=== PATIENT | female | born 1945 | race Caucasian/White ===

== ENCOUNTER 2018-10-16 10:47 | Inpatient (IN) | payer MEDICARE, OTHER ==
[~2018-10-16] VITALS: Ht 162.6 cm; Wt 89.0 kg
[2018-10-16] MEDS: albuterol 2.5 MG/3 ML nebule NEB SCH ×3 (00:30→22:07)
[~2018-10-16 10:47] MED LIST: ASPI81TA52 PO; ATOR20TA PO; LANTUS SQ; METF500T PO; OMEP-84 PO; SITA100T15 PO
[2018-10-16] MEDS ORDERED: levoFLOXACIN-Levaquin 750MG/D5 150 ML IV ONE (11:35)
[2018-10-16] MEDS ORDERED: normal saline 1000ML IV soln IV ONE (11:35)
[2018-10-16 11:36] LABS: BASOPHILS # (AUTO) 0.1 X10'3 (0-0.2); BASOPHILS % (AUTO) 0.3 % (0-1); EOSINOPHILS # (AUTO) 0.2 X10'3 (0-0.9); EOSINOPHILS % (AUTO) 1.2 % (0-6); HEMOGLOBIN 12.1 g/dl (12.0-16.0); LYMPHOCYTES # (AUTO) 1.2 X10'3 (1.1-4.8); LYMPHOCYTES % (AUTO) 7.8 % (21-51); MEAN CORPUSCULAR HEMOGLOBIN 24.8 PG (27.0-31.0); MEAN CORPUSCULAR VOLUME 79.9 FL (78-98); MEAN PLATELET VOLUME 9.6 FL (7.4-10.4); MONOCYTES # (AUTO) 1.6 X10'3 (0-0.9); MONOCYTES % (AUTO) 10.3 % (2-12); NEUTROPHILS # (AUTO) 12.1 X10'3 (1.8-7.7); NEUTROPHILS % (AUTO) 80.4 % (42-75); PLATELET COUNT 231 X10'3 (140-440); RED BLOOD COUNT 4.88 X10'6 (4.20-5.60); RED CELL DISTRIBUTION WIDTH 15.3 % (11.5-14.5); WHITE BLOOD COUNT 15.1 X10'3 (4.5-11.0)
[2018-10-16 11:47] LABS: ALANINE AMINOTRANSFERASE 16 U/L (12-78); ALBUMIN/GLOBULIN RATIO 0.6 (1.1-1.5); ALKALINE PHOSPHATASE 99 IU/L (46-116); ANION GAP 15 (8-16); ASPARTATE AMINO TRANSFERASE 15 U/L (10-37); BILIRUBIN,TOTAL 1.2 MG/DL (0.1-1.0); BLOOD UREA NITROGEN 17 MG/DL (7-18); BUN/CREATININE RATIO 18.5 (6.6-38.0); CALCIUM 9.4 MG/DL (8.5-10.1); CHLORIDE 97 MMOL/L (99-107); CREATININE 0.92 MG/DL (0.40-0.90); GLUCOSE 109 MG/DL (70-104); POTASSIUM 3.6 MMOL/L (3.5-5.1); SODIUM 136 MMOL/L (135-145); TOTAL CARBON DIOXIDE 24.3 MMOL/L (24-32); TOTAL PROTEIN 7.7 G/DL (6.4-8.2); eGFR 60 ML/MIN
[2018-10-16] MEDS ORDERED: magnesium hydroxide 30ml (MOM) UD suspension PO PRN (12:35)
[2018-10-16] MEDS ORDERED: magnesium 1gm/100ml D5W IVPB 100 ML IV PRN (12:35)
[2018-10-16] MEDS ORDERED: potassium Cl 20 mEq SR tablet PO PRN (12:35)
[2018-10-16] MEDS ORDERED: magnesium 4gm in 100ml NS 100 ML IV PRN (12:35)
[2018-10-16] MEDS ORDERED: potassium Cl 40MEQ/NS 500ml 500 ML IV PRN ×2 (12:35)
[2018-10-16] MEDS ORDERED: ondansetron/PF 4mg/2ml inj IV PRN (12:35)
[2018-10-16] MEDS ORDERED: mag hydrox/Alum hydrox/simeth 30ml oral suspension PO PRN (12:35)
[2018-10-16] MEDS ORDERED: magnesium Cl slow-release 64mg tablet PO PRN (12:35)
[2018-10-16] MEDS ORDERED: acetaminophen 325mg tablet PO PRN (12:35)
[2018-10-16] MEDS ORDERED: DAPA10TA PO (12:48)
[2018-10-16] MEDS: CefTRIAXone/D5W-Rocephin 1gm 50 ML IV SCH (13:53)
[2018-10-16] MEDS: oxybutynin 5mg tablet PO SCH ×2 (13:53→21:09)
[2018-10-16] MEDS: normal saline 1000ml 1,000 ML IV SCH ×2 (15:23→19:54)
[2018-10-16 19:20] VITALS: BP 138/67
[2018-10-16] MEDS: atorvastatin 20mg tablet PO SCH (21:09)
[2018-10-17] VITALS: BP 135/67
[2018-10-17 05:47] LABS: HEMOGLOBIN A1C 7.3 % (4.5-6.2)
[2018-10-17] MEDS: normal saline 1000ml 1,000 ML IV SCH ×2 (05:52→18:05)
[2018-10-17 06:14] LABS: ALANINE AMINOTRANSFERASE 19 U/L (12-78); ALBUMIN 2.6 G/DL (3.4-5.0); ALBUMIN/GLOBULIN RATIO 0.6 (1.1-1.5); ALKALINE PHOSPHATASE 98 IU/L (46-116); ANION GAP 11 (8-16); ASPARTATE AMINO TRANSFERASE 22 U/L (10-37); BILIRUBIN,TOTAL 0.8 MG/DL (0.1-1.0); BLOOD UREA NITROGEN 14 MG/DL (7-18); BUN/CREATININE RATIO 17.1 (6.6-38.0); CALCIUM 8.6 MG/DL (8.5-10.1); CHLORIDE 103 MMOL/L (99-107); CREATININE 0.82 MG/DL (0.40-0.90); GLUCOSE 124 MG/DL (70-104); MAGNESIUM 1.6 MG/DL (1.5-2.4); POTASSIUM 3.6 MMOL/L (3.5-5.1); SODIUM 140 MMOL/L (135-145); TOTAL CARBON DIOXIDE 25.6 MMOL/L (24-32); eGFR 69 ML/MIN
[2018-10-17 06:43] LABS: BASOPHILS % (AUTO) 0.1 % (0-1); EOSINOPHILS # (AUTO) 0.1 X10'3 (0-0.9); EOSINOPHILS % (AUTO) 0.9 % (0-6); HEMATOCRIT 37.6 % (35.0-45.0); HEMOGLOBIN 11.8 g/dl (12.0-16.0); LYMPHOCYTES # (AUTO) 1.6 X10'3 (1.1-4.8); LYMPHOCYTES % (AUTO) 9.9 % (21-51); MEAN CORPUSCULAR HEMOGLOBIN 25.3 PG (27.0-31.0); MEAN CORPUSCULAR HGB CONC 31.5 % (33.0-36.5); MEAN CORPUSCULAR VOLUME 80.3 FL (78-98); MEAN PLATELET VOLUME 10.2 FL (7.4-10.4); MONOCYTES # (AUTO) 2.2 X10'3 (0-0.9); MONOCYTES % (AUTO) 13.6 % (2-12); NEUTROPHILS # (AUTO) 12.2 X10'3 (1.8-7.7); NEUTROPHILS % (AUTO) 75.5 % (42-75); PLATELET COUNT 250 X10'3 (140-440); RED BLOOD COUNT 4.68 X10'6 (4.20-5.60); RED CELL DISTRIBUTION WIDTH 15.9 % (11.5-14.5); WHITE BLOOD COUNT 16.2 X10'3 (4.5-11.0)
[2018-10-17 06:50] LABS: ANISOCYTOSIS 1+; LARGE PLATELETS FEW; MICROCYTOSIS 1+; PLATELET ESTIMATE NORMAL; TOTAL CELLS COUNTED 100
[2018-10-17 07:44] VITALS: BP 108/53
[2018-10-17] MEDS: oxybutynin 5mg tablet PO SCH ×3 (07:45→20:41)
[2018-10-17] MEDS: aspirin 81mg tablet.DR PO SCH (07:45)
[2018-10-17] MEDS: pantoprazole 40mg Tablet.DR PO SCH (07:47)
[2018-10-17] MEDS: enoxaparin 40mg/0.4ml syringe SUBCUT SCH (07:48)
[2018-10-17] MEDS: CefTRIAXone/D5W-Rocephin 1gm 50 ML IV SCH (07:50)
[2018-10-17] MEDS: K and/or MAG REPLACEMENT MC SCH (08:00)
[2018-10-17] MEDS ORDERED: non-formulary drug (Omeprazole* (Prilosec*) 1 CAP) PO SCH (08:00)
[2018-10-17] MEDS: albuterol 2.5 MG/3 ML nebule NEB SCH ×5 (08:00→23:00)
[2018-10-17] MEDS ORDERED: dextrose ORAL solution 15 GM/59 ML bottle PO PRN ×2 (09:05)
[2018-10-17] MEDS ORDERED: MESSAGE TO PHARMACY PO ONE (09:05)
[2018-10-17] MEDS ORDERED: dextrose 50%-water 50ml dispensing syringe IV PRN ×2 (09:05)
[2018-10-17] MEDS ORDERED: glucagon, human recombinant 1mg kit SUBCUT PRN (09:05)
[2018-10-17] MEDS: levoFLOXACIN-Levaquin 250mg/D5 50 ML IV SCH (09:28)
[2018-10-17] MEDS: Protein Smoothie (high protein) 240ml (8oz) cup PO SCH ×2 (13:00→18:00)
[2018-10-17] MEDS ORDERED: LIDOcaine/PRILOcaine 5gm cream TP PRN (14:15)
[2018-10-17 18:00] VITALS: BP 136/57
[2018-10-17] MEDS: atorvastatin 20mg tablet PO SCH (20:42)
[2018-10-17] MEDS: insulin glargine (Lantus) pen - multi-dose SQ SCH (21:00)
[2018-10-17] MEDS: acetaminophen 325mg tablet PO PRN (21:50)
[2018-10-17] MEDS ORDERED: temazepam 15mg capsule PO PRN (22:00)
[2018-10-18 03:25] VITALS: BP 151/74
[2018-10-18] MEDS: albuterol 2.5 MG/3 ML nebule NEB SCH ×6 (03:28→23:21)
[2018-10-18] MEDS: normal saline 1000ml 1,000 ML IV SCH ×2 (04:35→09:06)
[2018-10-18 04:50] VITALS: BP 135/55
[2018-10-18 07:12] LABS: BASOPHILS # (AUTO) 0.1 X10'3 (0-0.2); BASOPHILS % (AUTO) 0.5 % (0-1); EOSINOPHILS # (AUTO) 0.2 X10'3 (0-0.9); EOSINOPHILS % (AUTO) 1.3 % (0-6); HEMATOCRIT 36.2 % (35.0-45.0); HEMOGLOBIN 11.3 g/dl (12.0-16.0); LYMPHOCYTES # (AUTO) 0.9 X10'3 (1.1-4.8); LYMPHOCYTES % (AUTO) 5.7 % (21-51); MEAN CORPUSCULAR HEMOGLOBIN 25.2 PG (27.0-31.0); MEAN CORPUSCULAR HGB CONC 31.1 % (33.0-36.5); MEAN CORPUSCULAR VOLUME 81.2 FL (78-98); MEAN PLATELET VOLUME 9.9 FL (7.4-10.4); MONOCYTES # (AUTO) 1.5 X10'3 (0-0.9); MONOCYTES % (AUTO) 9.7 % (2-12); NEUTROPHILS # (AUTO) 12.8 X10'3 (1.8-7.7); NEUTROPHILS % (AUTO) 82.8 % (42-75); PLATELET COUNT 256 X10'3 (140-440); RED BLOOD COUNT 4.46 X10'6 (4.20-5.60); RED CELL DISTRIBUTION WIDTH 15.8 % (11.5-14.5); WHITE BLOOD COUNT 15.4 X10'3 (4.5-11.0)
[2018-10-18 07:31] LABS: ALANINE AMINOTRANSFERASE 25 U/L (12-78); ALBUMIN 2.4 G/DL (3.4-5.0); ALBUMIN/GLOBULIN RATIO 0.5 (1.1-1.5); ALKALINE PHOSPHATASE 112 IU/L (46-116); ANION GAP 10 (8-16); ASPARTATE AMINO TRANSFERASE 30 U/L (10-37); BILIRUBIN,TOTAL 0.5 MG/DL (0.1-1.0); BLOOD UREA NITROGEN 9 MG/DL (7-18); BUN/CREATININE RATIO 12.9 (6.6-38.0); CHLORIDE 103 MMOL/L (99-107); GLUCOSE 123 MG/DL (70-104); MAGNESIUM 2.1 MG/DL (1.5-2.4); SODIUM 140 MMOL/L (135-145); TOTAL CARBON DIOXIDE 26.9 MMOL/L (24-32); eGFR 82 ML/MIN
[2018-10-18] MEDS: K and/or MAG REPLACEMENT MC SCH (08:00)
[2018-10-18] MEDS: aspirin 81mg tablet.DR PO SCH (08:44)
[2018-10-18] MEDS: levoFLOXACIN-Levaquin 250mg/D5 50 ML IV SCH (08:44)
[2018-10-18] MEDS: pantoprazole 40mg Tablet.DR PO SCH (08:45)
[2018-10-18] MEDS: oxybutynin 5mg tablet PO SCH ×3 (08:45→20:55)
[2018-10-18] MEDS: Protein Smoothie (high protein) 240ml (8oz) cup PO SCH ×3 (08:45→18:53)
[2018-10-18] MEDS: enoxaparin 40mg/0.4ml syringe SUBCUT SCH (08:45)
[2018-10-18] MEDS: CefTRIAXone/D5W-Rocephin 1gm 50 ML IV SCH (09:53)
[2018-10-18 11:45] VITALS: BP 130/70
[2018-10-18] MEDS: acetaminophen 325mg tablet PO PRN (11:54)
[2018-10-18 13:21] LABS: D-DIMER 5.04 MG/L FEU (0-0.50)
[2018-10-18 14:26] LABS: CLARITY,URINE SLIGHTLY CLOUDY (Clear); COLOR,URINE YELLOW (Yellow); GLUCOSE, URINE >=1000 mg/dl (Neg); KETONES,URINE >=80 mg/dl (Neg); LEUKOCYTE ESTERASE ,URINE NEGATIVE (Neg); NITRITES, URINE POSITIVE (Neg); OCCULT BLOOD,URINE SMALL (Neg); PH,URINE 5.5 (4.8-8.0); PROTEIN,URINE TRACE mg/dl (Neg)
[2018-10-18 14:38] LABS: UA COLLECTION TYPE NON-SPECIFIED
[2018-10-18 14:40] LABS: BACTERIA,URINE 3+ /HPF (Neg); SQUAMOUS EPITHELIAL CELL,UR FEW /LPF (FEW); WBC CLUMPS,URINE FEW /HPF (NEGATIVE); YEAST MODERATE /HPF (NEGATIVE)
[2018-10-18] MEDS: MESSAGE TO NURSING PO SCH (17:00)
[2018-10-18] MEDS ORDERED: iohexol 350MG/ML 100ml bottle IV ONE (17:13)
[2018-10-18] MEDS ORDERED: furosemide 20 MG/2 ML vial IV ONE (18:35)
[2018-10-18 19:00] VITALS: BP 134/72
[2018-10-18] MEDS: atorvastatin 20mg tablet PO SCH (20:55)
[2018-10-18] MEDS ORDERED: Melatonin 3mg tablet PO SCH (21:00)
[2018-10-18] MEDS: insulin glargine (Lantus) pen - multi-dose SQ SCH (21:00)
[2018-10-18] MEDS ORDERED: Melatonin 3mg tablet PO PRN (21:00)
[2018-10-19] VITALS: BP 128/68
[2018-10-19 05:00] LABS: BASOPHILS # (AUTO) 0.1 X10'3 (0-0.2); BASOPHILS % (AUTO) 0.8 % (0-1); EOSINOPHILS # (AUTO) 0.1 X10'3 (0-0.9); HEMATOCRIT 33.2 % (35.0-45.0); HEMOGLOBIN 10.4 g/dl (12.0-16.0); MEAN CORPUSCULAR HEMOGLOBIN 25.1 PG (27.0-31.0); MEAN CORPUSCULAR HGB CONC 31.3 % (33.0-36.5); MEAN PLATELET VOLUME 9.4 FL (7.4-10.4); MONOCYTES # (AUTO) 1.4 X10'3 (0-0.9); NEUTROPHILS # (AUTO) 10.2 X10'3 (1.8-7.7); NEUTROPHILS % (AUTO) 79.2 % (42-75); PLATELET COUNT 236 X10'3 (140-440); RED BLOOD COUNT 4.15 X10'6 (4.20-5.60); RED CELL DISTRIBUTION WIDTH 15.7 % (11.5-14.5); WHITE BLOOD COUNT 12.9 X10'3 (4.5-11.0)
[2018-10-19 05:32] LABS: ALANINE AMINOTRANSFERASE 31 U/L (12-78); ALBUMIN 2.2 G/DL (3.4-5.0); ALBUMIN/GLOBULIN RATIO 0.5 (1.1-1.5); ALKALINE PHOSPHATASE 114 IU/L (46-116); ANION GAP 8 (8-16); ASPARTATE AMINO TRANSFERASE 33 U/L (10-37); BILIRUBIN,TOTAL 0.5 MG/DL (0.1-1.0); BLOOD UREA NITROGEN 9 MG/DL (7-18); BUN/CREATININE RATIO 13.6 (6.6-38.0); CALCIUM 8.7 MG/DL (8.5-10.1); CHLORIDE 100 MMOL/L (99-107); CREATININE 0.66 MG/DL (0.40-0.90); GLUCOSE 134 MG/DL (70-104); MAGNESIUM 1.9 MG/DL (1.5-2.4); POTASSIUM 3.4 MMOL/L (3.5-5.1); SODIUM 139 MMOL/L (135-145); TOTAL CARBON DIOXIDE 31.4 MMOL/L (24-32); TOTAL PROTEIN 6.6 G/DL (6.4-8.2); eGFR 88 ML/MIN
[2018-10-19] MEDS: pantoprazole 40mg Tablet.DR PO SCH (07:30)
[2018-10-19] MEDS: furosemide 20 MG/2 ML vial IV SCH (07:31)
[2018-10-19] MEDS: oxybutynin 5mg tablet PO SCH ×3 (07:31→21:11)
[2018-10-19] MEDS: CefTRIAXone/D5W-Rocephin 1gm 50 ML IV SCH (07:31)
[2018-10-19] MEDS: K and/or MAG REPLACEMENT MC SCH (07:31)
[2018-10-19] MEDS: potassium Cl 20 mEq SR tablet PO PRN ×3 (07:32→17:32)
[2018-10-19] MEDS: aspirin 81mg tablet.DR PO SCH (07:32)
[2018-10-19] MEDS: enoxaparin 40mg/0.4ml syringe SUBCUT SCH (07:33)
[2018-10-19] MEDS: albuterol 2.5 MG/3 ML nebule NEB SCH ×5 (07:43→23:00)
[2018-10-19] MEDS: Protein Smoothie (high protein) 240ml (8oz) cup PO SCH ×3 (08:00→18:14)
[2018-10-19 08:04] VITALS: BP 150/75
[2018-10-19] MEDS ORDERED: magnesium 2GM in 50ml NS 50 ML IV PRN (09:38)
[2018-10-19] MEDS: levoFLOXACIN-Levaquin 250mg/D5 50 ML IV SCH (09:48)
[2018-10-19 12:00] VITALS: BP 119/79
[2018-10-19] MEDS: MESSAGE TO NURSING PO SCH (17:00)
[2018-10-19] MEDS ORDERED: magnesium Cl slow-release 64mg tablet PO PRN (17:05)
[2018-10-19] MEDS ORDERED: potassium Cl 20 mEq SR tablet PO PRN (17:05)
[2018-10-19] MEDS: methylPREDNISolone sod succ/PF 40mg inj. IV SCH ×2 (17:34→23:16)
[2018-10-19 19:00] VITALS: BP 155/75
[2018-10-19] MEDS: insulin glargine (Lantus) pen - multi-dose SQ SCH (21:00)
[2018-10-19] MEDS: atorvastatin 20mg tablet PO SCH (21:11)
[2018-10-20] VITALS: BP 141/69
[2018-10-20 06:23] LABS: HEMATOCRIT 35.5 % (35.0-45.0); HEMOGLOBIN 11.2 g/dl (12.0-16.0); MEAN CORPUSCULAR HEMOGLOBIN 25.3 PG (27.0-31.0); MEAN CORPUSCULAR HGB CONC 31.6 % (33.0-36.5); MEAN CORPUSCULAR VOLUME 80.1 FL (78-98); MEAN PLATELET VOLUME 9.5 FL (7.4-10.4); PLATELET COUNT 298 X10'3 (140-440); RED BLOOD COUNT 4.43 X10'6 (4.20-5.60); RED CELL DISTRIBUTION WIDTH 15.8 % (11.5-14.5); WHITE BLOOD COUNT 10.1 X10'3 (4.5-11.0)
[2018-10-20 06:39] LABS: ALANINE AMINOTRANSFERASE 34 U/L (12-78); ALBUMIN 2.3 G/DL (3.4-5.0); ALBUMIN/GLOBULIN RATIO 0.5 (1.1-1.5); ALKALINE PHOSPHATASE 118 IU/L (46-116); ANION GAP 7 (8-16); ASPARTATE AMINO TRANSFERASE 33 U/L (10-37); BILIRUBIN,TOTAL 0.5 MG/DL (0.1-1.0); BLOOD UREA NITROGEN 13 MG/DL (7-18); BUN/CREATININE RATIO 21.3 (6.6-38.0); CHLORIDE 101 MMOL/L (99-107); CREATININE 0.61 MG/DL (0.40-0.90); GLUCOSE 215 MG/DL (70-104); MAGNESIUM 2.2 MG/DL (1.5-2.4); POTASSIUM 3.6 MMOL/L (3.5-5.1); SODIUM 140 MMOL/L (135-145); TOTAL CARBON DIOXIDE 32.5 MMOL/L (24-32); TOTAL PROTEIN 6.9 G/DL (6.4-8.2); eGFR > 90 ML/MIN
[2018-10-20 07:00] VITALS: BP 150/58
[2018-10-20 07:46] LABS: ANISOCYTOSIS 1+; PLATELET ESTIMATE NORMAL; POLYCHROMASIA 1+; TOTAL CELLS COUNTED 100
[2018-10-20] MEDS: albuterol 2.5 MG/3 ML nebule NEB SCH ×5 (07:59→23:00)
[2018-10-20] MEDS: K and/or MAG REPLACEMENT MC SCH (08:00)
[2018-10-20] MEDS: Protein Smoothie (high protein) 240ml (8oz) cup PO SCH ×3 (08:25→18:10)
[2018-10-20] MEDS: pantoprazole 40mg Tablet.DR PO SCH (08:26)
[2018-10-20] MEDS: furosemide 20 MG/2 ML vial IV SCH (08:26)
[2018-10-20] MEDS: CefTRIAXone/D5W-Rocephin 1gm 50 ML IV SCH (08:27)
[2018-10-20] MEDS: methylPREDNISolone sod succ/PF 40mg inj. IV SCH ×2 (08:27→16:40)
[2018-10-20] MEDS: enoxaparin 40mg/0.4ml syringe SUBCUT SCH (08:28)
[2018-10-20] MEDS: aspirin 81mg tablet.DR PO SCH (08:28)
[2018-10-20] MEDS: oxybutynin 5mg tablet PO SCH ×3 (08:28→21:18)
[2018-10-20] MEDS: acetaminophen 325mg tablet PO PRN (10:18)
[2018-10-20] MEDS: levoFLOXACIN 250mg tablet PO SCH (11:26)
[2018-10-20 12:00] VITALS: BP 117/66
[2018-10-20] MEDS: insulin Lispro (HumaLOG) vial - multi-dose SQ SCH ×3 (14:07→21:41)
[2018-10-20 19:30] VITALS: BP 119/52
[2018-10-20] MEDS: atorvastatin 20mg tablet PO SCH (21:18)
[2018-10-20] MEDS: lactobacillus rhamnosus 10,000 MMU CELLS/CAPSULE PO SCH (21:18)
[2018-10-20] MEDS: insulin glargine (Lantus) pen - multi-dose SQ SCH (21:35)
[2018-10-21] VITALS: BP 119/58
[2018-10-21] MEDS: methylPREDNISolone sod succ/PF 40mg inj. IV SCH ×3 (00:07→16:42)
[2018-10-21 05:52] LABS: MEAN CORPUSCULAR HGB CONC 31.4 % (33.0-36.5); MEAN CORPUSCULAR VOLUME 79.4 FL (78-98); MEAN PLATELET VOLUME 9.1 FL (7.4-10.4); PLATELET COUNT 375 X10'3 (140-440); RED CELL DISTRIBUTION WIDTH 15.5 % (11.5-14.5); WHITE BLOOD COUNT 15.4 X10'3 (4.5-11.0)
[2018-10-21 06:06] LABS: ALANINE AMINOTRANSFERASE 32 U/L (12-78); ALBUMIN 2.2 G/DL (3.4-5.0); ALBUMIN/GLOBULIN RATIO 0.5 (1.1-1.5); ALKALINE PHOSPHATASE 121 IU/L (46-116); ANION GAP 1 (8-16); ASPARTATE AMINO TRANSFERASE 24 U/L (10-37); BILIRUBIN,TOTAL 0.3 MG/DL (0.1-1.0); BLOOD UREA NITROGEN 16 MG/DL (7-18); BUN/CREATININE RATIO 19.8 (6.6-38.0); CALCIUM 9.2 MG/DL (8.5-10.1); CHLORIDE 100 MMOL/L (99-107); CREATININE 0.81 MG/DL (0.40-0.90); GLUCOSE 301 MG/DL (70-104); MAGNESIUM 2.2 MG/DL (1.5-2.4); POTASSIUM 3.5 MMOL/L (3.5-5.1); SODIUM 138 MMOL/L (135-145); TOTAL CARBON DIOXIDE 36.9 MMOL/L (24-32); TOTAL PROTEIN 6.5 G/DL (6.4-8.2); eGFR 70 ML/MIN
[2018-10-21 06:48] LABS: PLATELET ESTIMATE NORMAL; TOTAL CELLS COUNTED 100
[2018-10-21] MEDS: albuterol 2.5 MG/3 ML nebule NEB SCH ×5 (06:48→23:00)
[2018-10-21] MEDS: pantoprazole 40mg Tablet.DR PO SCH (07:45)
[2018-10-21] MEDS: lactobacillus rhamnosus 10,000 MMU CELLS/CAPSULE PO SCH ×2 (07:46→19:22)
[2018-10-21] MEDS: oxybutynin 5mg tablet PO SCH ×3 (07:46→21:35)
[2018-10-21] MEDS: aspirin 81mg tablet.DR PO SCH (07:47)
[2018-10-21 07:50] VITALS: BP 118/53
[2018-10-21] MEDS: enoxaparin 40mg/0.4ml syringe SUBCUT SCH (07:50)
[2018-10-21 08:00] VITALS: BP 115/53
[2018-10-21] MEDS: K and/or MAG REPLACEMENT MC SCH (08:00)
[2018-10-21] MEDS: furosemide 20 MG/2 ML vial IV SCH (08:06)
[2018-10-21] MEDS: CefTRIAXone/D5W-Rocephin 1gm 50 ML IV SCH (08:06)
[2018-10-21] MEDS: Protein Smoothie (high protein) 240ml (8oz) cup PO SCH ×3 (08:07→18:43)
[2018-10-21] MEDS: insulin Lispro (HumaLOG) vial - multi-dose SQ SCH ×4 (09:01→21:56)
[2018-10-21 11:27] VITALS: BP 135/66
[2018-10-21] MEDS: levoFLOXACIN 250mg tablet PO SCH (11:49)
[2018-10-21] MEDS: predniSONE 20 mg tablet PO SCH (18:43)
[2018-10-21] MEDS: micafungin inj 100 MG in normal saline 100ml IV soln 100 ML IV SCH (18:44)
[2018-10-21 19:00] VITALS: BP 129/58
[2018-10-21] MEDS: ipratropium/albuterol 3ml nebule NEB SCH ×2 (19:11→23:09)
[2018-10-21] MEDS ORDERED: insulin glargine (Lantus) pen - multi-dose SQ SCH (21:00)
[2018-10-21] MEDS: atorvastatin 20mg tablet PO SCH (21:35)
[2018-10-21] MEDS: acetaminophen 325mg tablet PO PRN (21:50)
[2018-10-22] VITALS: BP 138/65
[2018-10-22] MEDS: ipratropium/albuterol 3ml nebule NEB SCH ×6 (02:52→23:59)
[2018-10-22 05:47] LABS: ALBUMIN 2.4 G/DL (3.4-5.0); ANION GAP 6 (8-16); BLOOD UREA NITROGEN 17 MG/DL (7-18); BUN/CREATININE RATIO 21.8 (6.6-38.0); CALCIUM 9.1 MG/DL (8.5-10.1); CHLORIDE 98 MMOL/L (99-107); CREATININE 0.78 MG/DL (0.40-0.90); GLUCOSE 284 MG/DL (70-104); MAGNESIUM 2.3 MG/DL (1.5-2.4); POTASSIUM 3.2 MMOL/L (3.5-5.1); SODIUM 142 MMOL/L (135-145); TOTAL CARBON DIOXIDE 38.1 MMOL/L (24-32); eGFR 73 ML/MIN
[2018-10-22 06:20] LABS: BASOPHILS # (AUTO) 0.3 X10'3 (0-0.2); EOSINOPHILS % (AUTO) 0 % (0-6); HEMATOCRIT 35.9 % (35.0-45.0); HEMOGLOBIN 11.3 g/dl (12.0-16.0); LYMPHOCYTES # (AUTO) 0.9 X10'3 (1.1-4.8); LYMPHOCYTES % (AUTO) 6.6 % (21-51); MEAN CORPUSCULAR HEMOGLOBIN 25.1 PG (27.0-31.0); MEAN CORPUSCULAR HGB CONC 31.5 % (33.0-36.5); MEAN CORPUSCULAR VOLUME 79.5 FL (78-98); MONOCYTES # (AUTO) 0.6 X10'3 (0-0.9); MONOCYTES % (AUTO) 4.1 % (2-12); NEUTROPHILS # (AUTO) 12.6 X10'3 (1.8-7.7); PLATELET COUNT 422 X10'3 (140-440); RED BLOOD COUNT 4.51 X10'6 (4.20-5.60); RED CELL DISTRIBUTION WIDTH 15.7 % (11.5-14.5); WHITE BLOOD COUNT 14.4 X10'3 (4.5-11.0)
[2018-10-22 06:21] LABS: NEUTROPHILS % (AUTO) 88.3 % (42-75)
[2018-10-22 08:00] VITALS: BP 146/53
[2018-10-22] MEDS: K and/or MAG REPLACEMENT MC SCH (08:00)
[2018-10-22] MEDS: Protein Smoothie (high protein) 240ml (8oz) cup PO SCH ×3 (08:29→17:56)
[2018-10-22] MEDS: oxybutynin 5mg tablet PO SCH ×3 (08:30→22:03)
[2018-10-22] MEDS: pantoprazole 40mg Tablet.DR PO SCH (08:30)
[2018-10-22] MEDS: predniSONE 20 mg tablet PO SCH (08:30)
[2018-10-22] MEDS: potassium Cl 20 mEq SR tablet PO PRN ×2 (08:30→14:08)
[2018-10-22] MEDS: furosemide 20 MG/2 ML vial IV SCH ×2 (08:30→22:02)
[2018-10-22] MEDS: aspirin 81mg tablet.DR PO SCH (08:30)
[2018-10-22] MEDS: lactobacillus rhamnosus 10,000 MMU CELLS/CAPSULE PO SCH ×2 (08:30→22:03)
[2018-10-22] MEDS: enoxaparin 40mg/0.4ml syringe SUBCUT SCH (08:31)
[2018-10-22] MEDS: levoFLOXACIN-Levaquin 750MG/D5 150 ML IV SCH (08:31)
[2018-10-22] MEDS: insulin Lispro (HumaLOG) vial - multi-dose SQ SCH ×3 (08:41→22:20)
[2018-10-22] MEDS ORDERED: saliva stimulant agent 45ml spray MM PRN (11:10)
[2018-10-22 12:00] VITALS: BP 123/67
[2018-10-22] MEDS: micafungin inj 100 MG in normal saline 100ml IV soln 100 ML IV SCH (14:09)
[2018-10-22] MEDS: guaiFENesin 200 MG/10 ML oral syrup UD cup PO SCH ×2 (17:44→22:03)
[2018-10-22] MEDS: potassium Cl 20 mEq SR tablet PO SCH (17:44)
[2018-10-22 19:00] VITALS: BP 119/77
[2018-10-22 20:06] LABS: CLARITY,URINE CLEAR (Clear); COLOR,URINE YELLOW (Yellow); GLUCOSE, URINE 100 mg/dl (Neg); KETONES,URINE NEGATIVE (Neg); LEUKOCYTE ESTERASE ,URINE NEGATIVE (Neg); NITRITES, URINE NEGATIVE (Neg); OCCULT BLOOD,URINE NEGATIVE (Neg); PH,URINE 7.5 (4.8-8.0); PROTEIN,URINE NEGATIVE (Neg); UROBILINOGEN,URINE 0.2 E.U/dL (0.2-1.0)
[2018-10-22 20:07] LABS: UA COLLECTION TYPE VOIDED
[2018-10-22] MEDS ORDERED: insulin glargine (Lantus) pen - multi-dose SQ SCH (21:00)
[2018-10-22] MEDS: atorvastatin 20mg tablet PO SCH (22:05)
[2018-10-23] VITALS: BP 146/67
[2018-10-23] MEDS: guaiFENesin 200 MG/10 ML oral syrup UD cup PO SCH ×3 (02:26→13:33)
[2018-10-23] MEDS: ipratropium/albuterol 3ml nebule NEB SCH ×4 (04:12→14:29)
[2018-10-23 05:15] LABS: HEMOGLOBIN 11.6 g/dl (12.0-16.0); MEAN CORPUSCULAR HEMOGLOBIN 25.4 PG (27.0-31.0); MEAN CORPUSCULAR HGB CONC 32.2 % (33.0-36.5); MEAN CORPUSCULAR VOLUME 78.7 FL (78-98); MEAN PLATELET VOLUME 8.4 FL (7.4-10.4); PLATELET COUNT 372 X10'3 (140-440); RED BLOOD COUNT 4.58 X10'6 (4.20-5.60); RED CELL DISTRIBUTION WIDTH 15.3 % (11.5-14.5); WHITE BLOOD COUNT 11.8 X10'3 (4.5-11.0)
[2018-10-23 05:39] LABS: ALBUMIN 2.5 G/DL (3.4-5.0); ANION GAP 5 (8-16); BLOOD UREA NITROGEN 19 MG/DL (7-18); CALCIUM 9.1 MG/DL (8.5-10.1); CHLORIDE 99 MMOL/L (99-107); CREATININE 0.76 MG/DL (0.40-0.90); GLUCOSE 267 MG/DL (70-104); MAGNESIUM 2.2 MG/DL (1.5-2.4); POTASSIUM 3.2 MMOL/L (3.5-5.1); SODIUM 142 MMOL/L (135-145); TOTAL CARBON DIOXIDE 38.4 MMOL/L (24-32); eGFR 75 ML/MIN
[2018-10-23 06:23] LABS: PLATELET ESTIMATE NORMAL; TOTAL CELLS COUNTED 100
[2018-10-23 07:34] VITALS: BP 131/68
[2018-10-23] MEDS: K and/or MAG REPLACEMENT MC SCH (08:00)
[2018-10-23] MEDS: pantoprazole 40mg Tablet.DR PO SCH (10:00)
[2018-10-23] MEDS: lactobacillus rhamnosus 10,000 MMU CELLS/CAPSULE PO SCH (10:01)
[2018-10-23] MEDS: oxybutynin 5mg tablet PO SCH ×2 (10:01→13:32)
[2018-10-23] MEDS: potassium Cl 20 mEq SR tablet PO SCH (10:02)
[2018-10-23] MEDS: aspirin 81mg tablet.DR PO SCH (10:03)
[2018-10-23] MEDS: enoxaparin 40mg/0.4ml syringe SUBCUT SCH (10:03)
[2018-10-23] MEDS: furosemide 20 MG/2 ML vial IV SCH (10:04)
[2018-10-23] MEDS: levoFLOXACIN-Levaquin 750MG/D5 150 ML IV SCH (10:10)
[2018-10-23] MEDS: insulin Lispro (HumaLOG) vial - multi-dose SQ SCH (10:13)
[2018-10-23] MEDS: Protein Smoothie (high protein) 240ml (8oz) cup PO SCH ×2 (10:14→13:32)
[2018-10-23] MEDS: predniSONE 20 mg tablet PO SCH (10:16)
[2018-10-23 11:00] VITALS: BP 111/67
[2018-10-23] MEDS ORDERED: potassium Cl 20 mEq SR tablet PO PRN ×2 (11:00)
[2018-10-23] MEDS ORDERED: potassium Cl 40MEQ/NS 500ml 500 ML IV PRN ×2 (11:00)
[2018-10-23] MEDS ORDERED: magnesium 4gm in 100ml NS 100 ML IV PRN (11:00)
[2018-10-23] MEDS ORDERED: magnesium Cl slow-release 64mg tablet PO PRN (11:00)
[2018-10-23] MEDS ORDERED: PRED10TA23 PO (13:08)
[2018-10-23] MEDS ORDERED: ALBU6.7H INH (13:08)
[2018-10-23] MEDS ORDERED: LEVO750T21 PO (13:08)
[2018-10-23] MEDS ORDERED: FURO-150 PO (13:08)
[2018-10-23] MEDS ORDERED: POTA20TA19 PO (13:08)
== END 2018-10-23 15:28 | disposition home health service (06) | DRG 871 ==
LOC: ER 10:48 → ED HOLD 12:35 → SUR 3N 19:15
PROVIDERS: ADMIT Family Medicine; ATTEND Internal Medicine
PROC: B32T1ZZ Computerized Tomography (CT Scan) of Left Pulmonary Artery using Low Osmolar Contrast (ICD-10-PCS; principal; 2018-10-18)
PROC: B3201ZZ Computerized Tomography (CT Scan) of Thoracic Aorta using Low Osmolar Contrast (ICD-10-PCS; 2018-10-18)
PROC: B32S1ZZ Computerized Tomography (CT Scan) of Right Pulmonary Artery using Low Osmolar Contrast (ICD-10-PCS; 2018-10-18)
DX: A41.9 Sepsis, unspecified organism (principal); J18.1 Lobar pneumonia, unspecified organism; J96.01 Acute respiratory failure with hypoxia; I50.31 Acute diastolic (congestive) heart failure; J44.0 Chronic obstructive pulmonary disease with (acute) lower respiratory infection; E11.9 Type 2 diabetes mellitus without complications; E87.6 Hypokalemia; K21.9 Gastro-esophageal reflux disease without esophagitis; R32 Unspecified urinary incontinence; Z60.2 Problems related to living alone; Z66 Do not resuscitate; Z98.891 History of uterine scar from previous surgery; Z88.0 Allergy status to penicillin; Z88.2 Allergy status to sulfonamides; Z79.82 Long term (current) use of aspirin; Z79.899 Other long term (current) drug therapy; Z79.84 Long term (current) use of oral hypoglycemic drugs; Z85.828 Personal history of other malignant neoplasm of skin; Z87.891 Personal history of nicotine dependence; Z83.79 Family history of other diseases of the digestive system; Z80.1 Family history of malignant neoplasm of trachea, bronchus and lung; Z82.3 Family history of stroke
CPT/HCPCS: 36415; 71045; 71046; 71275; 80048; 80053; 81001; 81003; 82948; 83036; 83605; 83735; 83880; 84132; 85025; 85379; 87040; 87070; 87077; 87088; 87502; 87503; 93306; 94640; 94668; 94760; 96365; 97116; 97161; 97530; 99285; G0378; J0696; J1650; J1815; J1940; J1956; J2248; J2920; J7030; J7512; Q9967

== ENCOUNTER 2023-10-21 14:37 | Emergency (ER) | payer MEDICARE, OTHER ==
[~2023-10-21] VITALS: Ht 162.6 cm; Wt 74.5 kg
[~2023-10-21 14:37] MED LIST changes: +ALBU6.7H14 INH; +DAPA10TA PO; -LANTUS SQ; -SITA100T15 PO
[2023-10-21 19:08] VITALS: BP 139/74; PULSE 100; RESP 16; TEMP 98; O2SAT 97
== END 2023-10-21 19:11 | disposition home or self-care (01) ==
LOC: ER 14:38
DX: U07.1 COVID-19 (principal); E11.9 Type 2 diabetes mellitus without complications; Z88.0 Allergy status to penicillin; Z88.2 Allergy status to sulfonamides; Z79.82 Long term (current) use of aspirin; Z79.899 Other long term (current) drug therapy; Z98.890 Other specified postprocedural states
CPT/HCPCS: 99283